=== PATIENT | female | born 1990 | race Caucasian/White ===

== ENCOUNTER 2020-01-19 05:52 | Emergency (ER) | payer MEDICARE, SELFPAY ==
[2020-01-19 05:57] VITALS: BP 137/84; PULSE 79; RESP 20; TEMP 36.7; O2SAT 100
--- NOTE | 2020-01-19 06:03 | W.ED.GENAD ---
Discharge Plan Disposition Patient Disposition: HOME Condition: Good Discharge Details Chief Complaint: Abd Prob Clinical Impression: Acute epigastric pain, Gastric ulcer Primary Care Provider: Vanessa,Local ED Provider: Renzo Escalona Home Meds and New Rx's Prescriptions: New pantoprazole [Protonix] 40 mg tablet,delayed release (DR/EC) 40 mg PO DAILY Qty: 30 RF: 0 famotidine 40 mg tablet 40 mg PO DAILY Qty: 30 RF: 0 sucralfate [Carafate] 1 gram tablet 1 gm PO BID Qty: 60 RF: 0 Discharge Instructions Instructions: Gastritis (ED) Additional Instructions: At this time your symptoms are concerning for a gastric ulcer. Please avoid any spicy foods, tomato-based products, or citrus-based foods. Please continue to take Tums, Pepto-Bismol/Maalox, for your current suspected gastric ulcer. If you notice any worsening of your symptoms, or any new symptoms such as vomiting, diarrhea, fever, chills, shortness of breath, chest pain, numbness, weakness, or fainting , please return immediately to the emergency department for reevaluation. Please follow up with your primary care provider as soon as possible for reassessment and reevaluation. As always, it was a pleasure participating in your medical care today. 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 Patient states that for the last day she has had notable burning/stabbing achy epigastric pain, similar to her previous ulcer that she has had in the past. She tried [id number]-[id number] antacids but this did not help. She has had nausea but no vomiting. She denies any exertional symptoms. No history of cardiac disease. She denies any diarrhea. She denies any shortness of breath, numbness tingling or weakness. No other complaints at this time. She denies previous abdominal surgeries, other medical conditions, or allergies. She denies IV or illicit drug use or recent diet change. Physical exam demonstrates a nonsurgical abdomen, abdominal pain is not reproducible. Signs and symptoms are notably concerning for gastric ulcer, likely secondary to her history of gastric sleeve. However due to the the past surgical component, we will get a CT scan to rule out perforation or erosion. We will treat the patient's pain, give Pepcid and famotidine, GI cocktail, rehydrate, monitor closely and reassess. 7:18 AM Laboratory work-up is returned, no white count or left shift. Electrolytes normal. Very minimal elevation in her transaminases, no evidence of hepatitis O. Lipase is normal. Pending urinalysis. test negative. Still pending CT results at this time. Patient is feeling much better after GI cocktail, Protonix, H2 jaime, and morphine. Patient will be signed out to my colleague Dr. Graham for review of the imaging results and reassessment. 8:[address] scan results have returned per Dr. Rosales and per radiology no evidence of acute process perforation rupture or other abnormality. Patient's pain notably improved. Signs and symptoms consistent with notable gastritis and potential gastric ulcer secondary to her gastric sleeve. Recommend close follow-up with her surgeon outpatient when she goes home later this afternoon to [place]. Will give H2 blockers, antacids, and Carafate for home use. Discussed red flags which to return. I have extensively reviewed the treatment plan and discharge instructions with the patient. I have addressed all patient concerns at this time. The patient was made aware of what symptoms to monitor for that would warrant a return to the emergency department. Discussed the plan with the patient, they demonstrate verbal understanding and agreement with our assessment and plan at this time. HPI General Date/Time Provider Initiated Documentation: 01/19/20 05:54. 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 Patient states that for the last day she has had notable burning/stabbing achy epigastric pain, similar to her previous ulcer that she has had in the past. She tried ndjf-osf-nibrlep antacids but this did not help. She has had nausea but no vomiting. She denies any exertional symptoms. No history of cardiac disease. She denies any diarrhea. She denies any shortness of breath, numbness tingling or weakness. No other complaints at this time. She denies previous abdominal surgeries, other medical conditions, or allergies. She denies IV or illicit drug use or recent diet change. Related Data Home Medications Medication Instructions Recorded Confirmed famotidine 40 mg PO DAILY #30 tab 01/19/20 pantoprazole [Protonix] 40 mg PO DAILY #30 tab 01/19/20 sucralfate [Carafate] 1 gm PO BID #60 tab 01/19/20 Previous Rx's Medication Instructions Recorded famotidine 40 mg PO DAILY #30 tab 01/19/20 pantoprazole [Protonix] 40 mg PO DAILY #30 tab 01/19/20 sucralfate [Carafate] 1 gm PO BID #60 tab 01/19/20 Allergies Allergy/AdvReac Type Severity Reaction Status Date / Time No Known Allergies Allergy Unverified 01/19/20 05:57 General Stated Complaint: Abd Prob MORGAN: 3 Review of Systems All systems reviewed & are unremarkable except as noted in HPI and below PFSH Social History Smoking/Tobacco Use Status: Never Alcohol Intake: never Drug use: Never Substance use type: does not use Do you feel safe at home: Yes Do you feel safe in your relationship?: Yes Exam Narrative Exam Narrative: 1.Const: Well-nourished, Well-developed, appearing stated age 2.Eyes: PERRL, no conjunctival injection, and symmetrical lids. 3.ENT: Atraumatic external nose and ears. Moist MM. Neck: Symmetric, trachea midline, No thyromegaly. 4.CVS: +S1/S2, No murmurs or gallops. Peripheral pulses 2+ and equal in all extremities. Brisk capillary refill in all extremities. 5.RESP: Unlabored respiratory effort. Clear to auscultation bilaterally. No wheezes rales or rhonchi 6.GI: Soft, Nontender/Nondistended, No hepatosplenomegaly. No guarding or rebound. Although pain is present in the epigastric region it is not reproducible. No flank or CVA tenderness. 7.MSK: Normocephalic/Atraumatic, Extremities w/o deformity or ttp No cyanosis or clubbing, Normal movement of all extremities 8.Skin: Warm, Dry. No rashes or lesions. 9.Neuro: pega developer II-XII grossly intact. Sensation grossly intact, no focal neurologic deficits. 10.Psych: (AAO) x3. Appropriate mood and affect Course Vital Signs Vital signs: Vital Signs Temperature 36.7 C 01/19/20 05:57 Pulse 79 01/19/20 05:57 Respiratory Rate 20 01/19/20 05:57 Blood Pressure 137/84 01/19/20 05:57 Pulse Oximetry 100 01/19/20 05:57 Temperature 36.7 C 01/19/20 05:57 Temperature Source Skin 01/19/20 05:57 Pulse 79 01/19/20 05:57 Respiratory Rate 20 01/19/20 05:57 Respiratory Effort 01/19/20 06:01 Blood Pressure 137/84 01/19/20 05:57 Blood Pressure Position Supine 01/19/20 05:57 Pulse Oximetry 100 01/19/20 05:57 Oxygen Delivery Method Room Air 01/19/20 05:57 Oxygen Flow Rate 0 01/19/20 05:57 Pain Level 10 01/19/20 05:57 Sign Out Sign Out Data: Sign Out Comment: Pending CT scan results, suspect gastric ulcer Last updated by Renzo Escalona DO at 01/19/20 07:21
[2020-01-19] MEDS: Pantoprazole 40 MG VIAL IVP (06:12)
[2020-01-19] MEDS: Ondansetron 4 MG/2 ML VIAL IVP (06:12)
[2020-01-19] MEDS: Normal Saline 500 ML IV (06:13)
[2020-01-19] MEDS: FAMOTIDINE 20 MG/50 ML BAG 200 MG IVPB (06:13)
[2020-01-19] MEDS: Omnipaque 350 MG/ML 50 ML BTL PO (06:22)
[2020-01-19 06:24] LABS: Abs Immature Grans 0.02 10^3/uL (0.0-0.06); Absolute Basophil Count 0.01 10^3/uL (0.0-0.2); Absolute Eosinophil Count 0.09 10^3/uL (0.0-0.7); Absolute Lymphocyte Count 3.34 10^3/uL (1.2-3.4); Basophils % 0.1; HCT 41.5 % (36.0-46.0); HGB 13.4 g/dL (11.2-15.7); Immature Grans % 0.2; Lymphocytes % 36.5; MCH 29.6 pg (27.0-33.0); MCHC 32.3 % (32.0-36.0); MCV 91.8 fL (80-95); MPV 10.1 fL (8.0-11.0); Monocytes % 5.5; Neutrophils % 56.7; Nucleated RBC 0 %; Platelet Count 244 10^3/uL (130-400); RBC 4.52 10^6/uL (3.93-5.22); RDW 12.4 % (11.7-14.6); RDW-SD 42.2 fL; WBC 9.16 10^3/uL (4.4-10.8)
[2020-01-19] MEDS: Breeza Beverage 473 ML BTL PO (06:24)
[2020-01-19 06:36] LABS: ALT 82 U/L (14-59); AST 68 U/L (15-37); Albumin 3.9 g/dL (3.4-5.0); Alkaline Phosphatase 88 U/L (46-116); Anion Gap 5.5 mmol/L (3-11); BUN 16 mg/dL (7-18); Bilirubin, Total 0.8 mg/dL (0.2-1.0); CO2 29.5 mmol/L (21.0-32.0); CREATININE 0.64 mg/dL (0.55-1.02); Calcium 8.9 mg/dL (8.5-10.1); Chloride 103 mmol/L (98-107); Glucose 125 mg/dL (74-106); Potassium 3.8 mmol/L (3.5-5.1); Sodium 138 mmol/L (136-145); Total Protein 7.4 g/dL (6.4-8.2)
[2020-01-19 06:46] LABS: Lipase 313 U/L (73-393)
--- NOTE | 2020-01-19 08:13 | DI.CT_ITS ---
EXAM: CT ABDOMEN PELVIS W CLINICAL HISTORY: epigastric pain, hx of gastric sleeve, r/o perf/ob TECHNIQUE: COMPARISON: No exams were available for comparison FINDINGS: CT examination of the pelvis was performed with bolus infusion of 100 cc of Omnipaque 350. Patient re portedly has a history of prior gastric sleeve surgery. Images obtained through the lung bases are un remarkable. Prior gastric sleeve surgery noted. No extraluminal fluid collection or gas identified. N o evidence of obstruction. No perigastric fat edema to suggest inflammation. Liver and spleen are unremarkable. Gallbladder and bile ducts are CT normal. Pancreas appears normal. Adrenals and kidneys appear normal with no evidence of urinary tract calcification or obstruction. No significant abdominal wall hernia seen. No significant abdominal or pelvic adenopathy. Maintenance Scheduler structures appear intact with an IUD in place in the uterine midline. Abdominal aorta is of normal diameter and major visceral branches appear normal. Unremarkable appeara nce of the urinary bladder. IMPRESSION: Evidence of acute intra-abdominal process. If there is a high clinical suspicion of pathology involvi ng surgically altered stomach, additional evaluation with endoscopy would be recommended. RADIATION DOSE DELIVERED: Total DLP edema
[2020-01-19] MEDS: Omnipaque 350 MG/ML 100 ML BTL IJ (08:14)
[2020-01-19] MEDS: Sucralfate 1 GM TAB PO (08:21)
[2020-01-19] MEDS: Sucralfate 1 GM TAB (08:21)
[2020-01-19 08:44] VITALS: BP 114/70; PULSE 65; TEMP 36.6; O2SAT 98
== END 2020-01-19 08:51 | disposition home or self-care (01) ==
PROVIDERS: Emergency Provider Student in an Organized Health Care Education/Training Program
DX: K25.3 Acute gastric ulcer without hemorrhage or perforation (principal); R10.13 Epigastric pain; Z98.84 Bariatric surgery status
CPT/HCPCS: 80053; 81025; 83690; 96361; 96365; 96374; 96375; 96376; 99285; 74177; 81003; 85025; 99284; J2405; J3490; Q9967